=== PATIENT | female | born 1955 | race Caucasian/White ===

== ENCOUNTER 2017-05-11 07:27 | Day surgery (SDC) | payer BC ==
[2017-05-11] MEDS ORDERED: D5 LR 1000 ML 1,000 ML IV ONE (07:28)
[2017-05-11] MEDS ORDERED: DIPRIVAN VIAL 20 ML ONE (08:45)
[2017-05-11] MEDS ORDERED: XYLOCAINE 2 % (PLAIN) ONE (08:45)
[2017-05-11] MEDS ORDERED: DIPRIVAN VIAL 10 ML ONE ×2 (09:00→09:18)
[2017-05-11] MEDS ORDERED: ROBINUL ONE ×2 (09:00→09:04)
[2017-05-11 09:45] VITALS: BP 117/80
--- NOTE | 2017-05-11 09:48 | OR.GENERIC ---
Post-Op Note Generic - Post-Op Note Operative Report: Procedure Note May 11, 2017 Pre-Operative Diagnosis: Screening colonoscopy. Post-Operative Diagnosis: 1. Rectal polyp. 2. Grade I internal hemorrhoids. 3. Small external hemorrhoids. Procedure: Colonoscopy to cecum with biopsy (cold biopsy forceps). Surgeon: Richard Alcantar MD [employer] Member: Joy Birmingham CRNA Specimens: Rectal polyp. Estimated blood loss: Minimal. Complications: None. Summary: The patient is a 61 year old female who presented for a screening colonoscopy. The risk and benefits of the procedure including difficulty with anesthesia, bleeding, infection, as well as perforation were discussed with the patient. The patient understood these risks and requested the procedure. On May 11, 2017, the patient was brought to the endoscopy suite. A time out was performed verifying the patient and procedure. The patient was placed in a left lateral decubitus position. After satisfactory induction of monitored anesthesia care, a rectal exam was performed. Small external hemorrhoids were noted. Next, an endoscopy was advanced through the anus and directed to the cecum without difficulty. The scope was then withdrawn viewing all mucosal surfaces. The patients prep was adequate. The cecum, ascending, transverse, descending, as well as sigmoid portions of the colon were normal. Specifically , there were no masses, polyps, or diverticula. The scope was withdrawn into the rectum and retroflexed. Grade I internal hemorrhoids were noted. The scope was straightened and a polyp noted in the proximal aspect. This was biopsied using cold biopsy forceps and sent to pathology. Insufflation was evacuated. The scope was withdrawn and the procedure terminated. The patient was taken to the recovery room in stable condition. There were no complications.
== END 2017-05-11 09:47 | disposition home or self-care (01) ==
LOC: SURG1 07:27
PROVIDERS: ATTEND Student in an Organized Health Care Education/Training Program
PROC: 0DBP8ZX Excision of Rectum, Via Natural or Artificial Opening Endoscopic, Diagnostic (ICD-10-PCS; principal; 2017-05-11 10:00)
DX: Z12.11 Encounter for screening for malignant neoplasm of colon (principal); K62.1 Rectal polyp; K64.0 First degree hemorrhoids; K64.4 Residual hemorrhoidal skin tags
CPT/HCPCS: A4217; J2001; J3490; J7120